=== PATIENT | female | born 1980 | race Caucasian/White ===

== ENCOUNTER 2017-03-06 16:58 | Emergency (ER) | payer OTHER ==
[2017-03-06] MEDS ORDERED: ONDANSETRON 4 MG/2 ML VIAL IVP STA (17:41)
[2017-03-06] MEDS ORDERED: HYDROmorphone 1 MG/ML SYRINGE IVP STA ×2 (17:41→20:16)
--- NOTE | 2017-03-06 17:44 | ED Physician Documentation ---
PD HPI ABD PAIN - Stated complaint Stated Complaint: AB PX - Chief complaint Chief Complaint: Abd Pain - History obtained from History obtained from: Patient - History of Present Illness Timing - onset: Other (Gradual but rapid onset right lower abdominal pain since early this afternoon associated with nausea but no vomiting. No urinary complaints or problems with her bowel movements. She has a history of 3 C- sections a cholecystectomy as well as pelvic floor dysfunction. 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 - Present Medications Home Medications: Ambulatory Orders Medication Instructions Recorded Confirmed Cyclobenzaprine [Flexeril] 10 mg PO DAILY 03/06/17 03/06/17 Oxycodone HCl/Acetaminophen 1 - 2 tab PO Q4H PRN #10 tablet 03/06/17 [Percocet 5-325 mg Tablet] Sertraline HCl [Zoloft] 200 mg PO DAILY 03/06/17 03/06/17 - Allergies Allergies/Adverse Reactions: Allergies Allergy/AdvReac Type Severity Reaction Status Date / Time amoxicillin [Amoxicillin] Allergy Unknown Verified 11/23/15 15:34 ketorolac tromethamine * Allergy Unknown Verified 11/23/15 15:34 [From Toradol] latex Allergy Unknown Verified 11/23/15 15:34 promethazine HCl * AdvReac Hives Verified 11/23/15 15:34 [From Phenergan] - Social History Does the pt smoke?: No Smoking Status: Former smoker Does the pt drink ETOH?: Yes Does the pt have substance abuse?: No - Family History Family history: reports: Non contributory - Immunizations Immunizations are current?: Yes PD ED PE NORMAL - Vitals Vital signs reviewed: Yes - General General: Alert and oriented X 3, Other (uncomfortable) - HEENT HEENT: PERRL, EOMI - Neck Neck: Supple, no meningeal sign, No bony TTP - Cardiac Cardiac: RRR, No murmur - Respiratory Respiratory: No respiratory distress, Clear bilaterally - Abdomen Abdomen: Other (TTP RLQ without G/R) - Back Back: No CVA TTP, No spinal TTP - Derm Derm: Normal color, Warm and dry - Extremities Extremities: No edema, No calf tenderness / cord - Neuro Neuro: Alert and oriented X 3, Normal speech - Psych Psych: Normal mood, Normal affect Results - Vitals Vitals: Vital Signs - 24 hr 03/06/17 03/06/17 03/06/17 17:03 18:14 20:31 Temperature 36.2 C L Heart Rate 88 79 92 Respiratory 20 16 18 Rate Blood Pressure 141/69 H 112/64 104/77 O2 Saturation 94 98 96 03/06/17 21:02 Temperature Heart Rate 92 Respiratory 16 Rate Blood Pressure 114/64 O2 Saturation 97 Oxygen O2 Source Room air - Labs Labs: Laboratory Tests 03/06/17 03/06/17 03/06/17 17:45 18:04 18:04 WBC 6.3 RBC 4.38 Hgb 13.0 Hct 39.5 MCV 90.3 MCH 29.8 MCHC 33.0 RDW 13.6 Plt Count 221 MPV 9.4 Neut # 2.9 Lymph # 2.6 [place] # 0.7 Eos # 0.1 Baso # 0.0 Absolute Nucleated RBC 0.01 Nucleated RBCs 0.1 Sodium 139 Potassium 4.3 Chloride 100 L Carbon Dioxide 31 Anion Gap 8.0 BUN 10 Creatinine 0.7 Estimated GFR (MDRD) 95 Glucose 79 Calcium 9.8 Total Bilirubin 0.4 AST 26 ALT 22 Alkaline Phosphatase 66 Total Protein 7.9 Albumin 4.5 Globulin 3.4 Albumin/Globulin Ratio 1.3 Lipase 31 Urine Color YELLOW Urine Clarity CLEAR Urine pH 5.0 Ur Specific [place] 1.020 Urine Protein NEGATIVE Urine Glucose (UA) NEGATIVE Urine Ketones NEGATIVE Urine Occult Blood TRACE-INTA Urine Nitrite NEGATIVE Urine Bilirubin NEGATIVE Urine Urobilinogen 0.2 (NORMAL) Ur Leukocyte Esterase NEGATIVE Ur Microscopic Review NOT INDICATED Urine Culture Comments NOT INDICATED Urine HCG, Qual NEGATIVE - Rads (name of study) Pelvic sono Radiology: EMP read contemporaneously (Small septated right ovarian cyst, heterogenous endometrium, small complex fluid in the cervix) PD MEDICAL DECISION MAKING - ED course ED course: 36 year-old woman presents with relatively sudden onset and nonmigratory right lower quadrant pain over a few hours and found to have a right ovarian cyst. Lack of any neutrophilia and low normal white count and present alternative diagnosis make appendicitis quite unlikely. Departure - Departure Disposition: 01 Home, Self Care Clinical Impression: Abdominal pain Qualifiers: Abdominal location: right lower quadrant Qualified Code(s): R10.31 - Right lower quadrant pain Ovarian cyst Qualifiers: Laterality: right Qualified Code(s): N83.201 - Unspecified ovarian cyst, right side Condition: Good Record reviewed to determine appropriate education?: Yes Instructions: ED Cyst Ovarian Prescriptions: Oxycodone HCl/Acetaminophen [Percocet 5-325 mg Tablet] 1 - 2 tab PO Q4H PRN #10 tablet PRN Reason: Pain Comments: As discussed you do have evidence of right ovary and cyst on ultrasound. If worse in any way or if you develop an on expected symptom like fever or not improving in the next 12-24 hours please return for reevaluation. Followup with your stores assistant. Do not drink or drive while on narcotic pain medicine. Note that many narcotic pain relievers also contain tylenol/acetaminophen. Please ensure that your total dose of acetaminophen from all sources does not exceed 3 grams (3000mg) per day. You may constipated on this medication, take a stool softener such as "Colace" twice a day while you are on it. Also recommend a rqpk-kht-afgrwsj laxative such as senna or MiraLAX any day that you do not have a bowel movement. If you received narcotic pain medication in the emergency department, do not drive or operate machinery for the next 24 hours.
[2017-03-06] MEDS ORDERED: ONDANSETRON 4 MG/2 ML VIAL ONE (17:55)
[2017-03-06] MEDS ORDERED: HYDROmorphone 1 MG/ML SYRINGE ONE ×2 (17:55→20:22)
[2017-03-06 18:11] LABS: BASOPHILS % (AUTO) 0.4 %; EOSINOPHILS # (AUTO) 0.1 10^3/uL (0.0-0.7); EOSINOPHILS % (AUTO) 1.3 %; HCT - HEMATOCRIT 39.5 % (37.0-47.0); LYMPHOCYTES # (AUTO) 2.6 10^3/uL (1.5-3.5); LYMPHOCYTES % (AUTO) 40.8 %; MEAN CORPUSCULAR HEMOGLOBIN 29.8 pg (27.0-31.0); MEAN CORPUSCULAR VOLUME 90.3 fL (81.0-99.0); MEAN PLATELET VOLUME 9.4 fL (7.9-10.8); MONOCYTES # (AUTO) 0.7 10^3/uL (0.0-1.0); MONOCYTES % (AUTO) 11.3 %; NEUTROPHILS # (AUTO) 2.9 10^3/uL (1.5-6.6); NEUTROPHILS % (AUTO) 46.2 %; NUCLEATED RED BLOOD CELLS AUTO 0.1 /100WBC; RED BLOOD COUNT 4.38 10^6/uL (4.20-5.40); RED CELL DISTRIBUTION WIDTH 13.6 % (12.0-15.0); UNCORRECTED WHITE BLOOD COUNT 6.3 x10^3/uL; WHITE BLOOD COUNT 6.3 x10^3/uL (4.8-10.8)
[2017-03-06 18:20] LABS: BILIRUBIN,URINE NEGATIVE (NEGATIVE)
[2017-03-06 18:24] LABS: UA CHARGE (STRIP ONLY) YES; UR CULTURE IF IND NOT INDICATED
[2017-03-06 18:36] LABS: ALBUMIN/GLOBULIN RATIO 1.3 (1.0-2.2); BILIRUBIN,TOTAL 0.4 mg/dL (0.2-1.0); CALCIUM 9.8 mg/dL (8.5-10.3); CREATININE 0.7 mg/dL (0.4-1.0); POTASSIUM 4.3 mmol/L (3.5-5.0); TOTAL PROTEIN 7.9 g/dL (6.7-8.2)
[2017-03-06 18:55] LABS: HCG UR QUAL NEGATIVE
--- NOTE | 2017-03-06 20:37 | Ultrasound Preliminary Report ---
Exam: US TRANSVAGINAL IMPRESSION: 1. Small moderate complex fluid in the cervix. 2. Heterogeneous endometrium with tiny fluid collection at level of scar. 3. Small septated right ovarian cyst. [facility] SITE ID: [id number]
--- NOTE | 2017-03-06 20:37 | Ultrasound Preliminary Report ---
Exam: US Pelvic Complete - Non OB IMPRESSION: 1. Small moderate complex fluid in the cervix. 2. Heterogeneous endometrium with tiny fluid collection at level of scar. 3. Small septated right ovarian cyst. [facility] SITE ID: [id number]
--- NOTE | 2017-03-06 20:39 | Ultrasound Report ---
EXAM: PELVIC ULTRASOUND EXAM DATE: 03/06/2017 07:58 PM. CLINICAL HISTORY: RLQ pain. COMPARISON: 11 feb 2008. TECHNIQUE: Realtime transabdominal pelvic scan performed to identify the uterus and adnexa and as an overview of other pelvic structures, followed by transvaginal scan to provide greater detail of the u terus and adnexa, with static image documentation. FINDINGS: Uterus: 9.4 x 4.0 x 6.7 cm, volume 131.5 cc. Anteverted position. Normal overall size and echotexture . Masses: None. Endometrium: 12 mm. Heterogeneous with small amount of vascularity. Small fluid collection at the lev el of the scar measuring about 0.5 x 0.3 x 0.6 cm. Cervix: Small amount of fluid and echogenic material in endocervical canal measuring about 2 mm in di ameter. Right Ovary: 3.5 x 3.0 x 2.1 cm, volume 12 cc. Normal echotexture and blood flow. Septated cyst measu ring about 1.8 x 1.4 x 2.7 cm. Left Ovary: 3.4 x 2.2 x 1.9 cm, volume 7 cc. Normal echotexture and blood flow. Free Fluid: None. Other: None. IMPRESSION: 1. Small moderate complex fluid in the cervix. 2. Heterogeneous endometrium with tiny fluid collection at level of scar. 3. Small septated right ovarian cyst. [facility] Referring Provider Line: [phone] SITE ID: [id number]
[2017-03-06 21:05] VITALS: BP 114/64
[2017-03-06] MEDS ORDERED: oxyCODONE/ACET 5/325 Prepack 4 PO STA (21:08)
[2017-03-06] MEDS ORDERED: oxyCODONE/ACET 5/325 Prepack 4 PO ONE (21:10)
== END 2017-03-06 21:17 | disposition home or self-care (01) ==
LOC: ED 16:58
DX: R10.31 Right lower quadrant pain (principal); N83.201 Unspecified ovarian cyst, right side; Z87.891 Personal history of nicotine dependence
CPT/HCPCS: 36415; 76830; 76856; 80053; 81003; 81025; 83690; 85025; 96374; 96375; 96376; 99284; J1170; 81001; 87086

== ENCOUNTER 2017-06-29 11:46 | Emergency (ER) | payer OTHER ==
[2017-06-29] MEDS ORDERED: ONDANSETRON 4 MG/2 ML VIAL IVP STA (12:44)
[2017-06-29] MEDS ORDERED: SODIUM CHLORIDE 0.9% 1,000 ML IV ONE (12:44)
[2017-06-29] MEDS ORDERED: HYDROmorphone 1 MG/ML CARPUJECT IVP STA ×2 (12:44→14:41)
--- NOTE | 2017-06-29 12:47 | ED Physician Documentation ---
PD HPI ABD PAIN - Stated complaint Stated Complaint: ABD PX - Chief complaint Chief Complaint: Abd Pain - History obtained from History obtained from: Patient, Friend - History of Present Illness Timing - onset: How many days ago (2) Timing - duration: Days (2) Timing - details: Gradual onset Pain level max: 9 Pain level now: 9 Quality: Cramping, Aching, Sharp, Pain Location: RLQ, Suprapubic, LLQ Radiation: Other (non-radiating) Improved by: Meds (percocet helped at home) Worsened by: Moving, Palpation Associated symptoms: Nausea. No: Fever, Vomiting, Hematemesis, Diarrhea, Constipation, Melena, Hematochezia, Dysuria, Hematuria, Vaginal bleeding, Vaginal dc Similar symptoms before: Diagnosis (pelvic floor dysfunction, vulvodynia, ovarian cyst) Recently seen: Clinic (sent from [facility] today for eval.) - Additional information Additional information: Patient is a 36-year-old female who presents to the emergency department with 2 days of worsening lower abdominal/pelvic pain. Has a history of similar. States that this started after doing physical therapy for her pelvic floor dysfunction. Denies any fevers. States that normally the pain feels like it is wrapping around her back, but this pain is more localized centrally in her abdomen, suprapubic area. She is currently seeing a pelvic floor nurse in [place] and tried her vaginal muscle relaxant medication, but this did not help much. The Percocet helped mildly. Has Percocet for cluster headaches. Review of Systems Constitutional: denies: Fever, Chills Eyes: denies: Decreased vision Ears: denies: Ear pain Throat: denies: Sore throat Cardiac: denies: Chest pain / pressure Respiratory: denies: Cough GI: reports: Nausea. 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 - Present Medications Home Medications: Ambulatory Orders Medication Instructions Recorded Confirmed Cyclobenzaprine [Flexeril] 10 mg PO DAILY 03/06/17 06/29/17 Oxycodone HCl/Acetaminophen 1 - 2 tab PO Q4H PRN #10 tablet 03/06/17 06/29/17 [Percocet 5-325 mg Tablet] Sertraline HCl [Zoloft] 200 mg PO DAILY 03/06/17 06/29/17 Ondansetron Odt [Zofran] 4 mg TL Q6H PRN #10 tablet 06/29/17 Oxycodone HCl/Acetaminophen 1 - 2 each PO Q6H PRN #14 tablet 06/29/17 [Percocet 5-325 mg Tablet] - Allergies Allergies/Adverse Reactions: Allergies Allergy/AdvReac Type Severity Reaction Status Date / Time amoxicillin [Amoxicillin] Allergy Unknown Verified 11/23/15 15:34 ketorolac tromethamine * Allergy Unknown Verified 11/23/15 15:34 [From Toradol] latex Allergy Unknown Verified 11/23/15 15:34 promethazine HCl * AdvReac Hives Verified 11/23/15 15:34 [From Phenergan] - Social History Does the pt smoke?: No Smoking Status: Never smoker Does the pt drink ETOH?: Yes Does the pt have substance abuse?: No - Immunizations Immunizations are current?: Yes PD ED PE NORMAL - Vitals Vital signs reviewed: Yes - General General: Alert and oriented X 3, No acute distress, Well developed/nourished - HEENT HEENT: PERRL, Moist mucous membranes - Neck Neck: Supple, no meningeal sign - Cardiac Cardiac: RRR, Strong equal pulses - Respiratory Respiratory: No respiratory distress, Clear bilaterally - Abdomen Abdomen: Normal bowel sounds, Soft, Non distended, Other (Tender to palpation lower abdominal, suprapubic and right lower quadrant. Positive guarding. Positive rebound.) - Back Back: No CVA TTP, No spinal TTP - Derm Derm: Warm and dry - Extremities Extremities: No edema - Neuro Neuro: Alert and oriented X 3 - Psych Psych: Normal mood, Normal affect Results - Vitals Vitals: Vital Signs - 24 hr 06/29/17 06/29/17 12:03 14:09 Temperature 36.7 C Heart Rate 87 68 Respiratory 16 15 Rate Blood Pressure 119/77 107/75 O2 Saturation 97 98 Oxygen O2 Source Room air - Labs Labs: Laboratory Tests 1006/29/17 06/29/17 11:55 12:32 12:32 WBC 5.9 RBC 4.21 Hgb 12.8 Hct 38.0 MCV 90.2 MCH 30.4 MCHC 33.7 RDW 13.8 Plt Count 242 MPV 9.9 Neut # 3.5 Lymph # 1.9 [place] # 0.4 Eos # 0.1 Baso # 0.1 Absolute Nucleated RBC 0.00 Nucleated RBC % 0.0 Sodium 136 Potassium 3.7 Chloride 101 Carbon Dioxide 26 Anion Gap 9.0 BUN 9 Creatinine 0.7 Estimated GFR (MDRD) 95 Glucose 125 H Calcium 9.4 Total Bilirubin 0.5 AST 25 ALT 18 Alkaline Phosphatase 45 Total Protein 7.7 Albumin 4.5 Globulin 3.2 Albumin/Globulin Ratio 1.4 Lipase 36 Urine Color YELLOW Urine Clarity CLEAR Urine pH 5.5 Ur Specific [place] >=1.030 H Urine Protein NEGATIVE Urine Glucose (UA) NEGATIVE Urine Ketones NEGATIVE Urine Occult Blood TRACE-INTA Urine Nitrite NEGATIVE Urine Bilirubin NEGATIVE Urine Urobilinogen 0.2 (NORMAL) Ur Leukocyte Esterase NEGATIVE Ur Microscopic Review NOT INDICATED Urine Culture Comments NOT INDICATED Urine HCG, Qual NEGATIVE - Rads (name of study) CT abdomen and pelvis Radiology: Prelim report reviewed, EMP read contemporaneously, See rad report ( 2 cm left ovarian cyst. Focal thinning of the lower anterior uterine wall most likely due to prior . Correlate clinically to determine etiology and significance of such. No evidence of perforation. Normal appendix. No radiographic explanation for this young lady's presenting symptoms.) PD MEDICAL DECISION MAKING - ED course Complexity details: reviewed old records, reviewed results, re-evaluated patient , considered differential, d/w patient ED course: Patient is a 36-year-old female who presents to the emergency department with lower abdominal/pelvic pain. Declines a pelvic exam. 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 Started after a physical therapy session. No acute findings on CT scan other than an ovarian cyst. She states that she is unable to have any more children. Her pain feels similar to prior ovarian cysts as well as to her pelvic floor dysfunction. Declines a repeat ultrasound at this time. She is well-appearing, nontoxic. Afebrile. Will have her follow-up with her PCP for further evaluation and care. Does not appear consistent with ovarian torsion at this time. Patient counseled regarding signs and symptoms for which I believe and urgent re-evaluation would be necessary. Patient with good understanding of and agreement to plan and is comfortable going home at this time This document was made in part using voice recognition software. While efforts are made to proofread this document, sound alike and grammatical errors may occur. Departure - Departure Disposition: 01 Home, Self Care Clinical Impression: Ovarian cyst Qualifiers: Laterality: left Qualified Code(s): N83.202 - Unspecified ovarian cyst, left side Abdominal pain Qualifiers: Abdominal location: unspecified location Qualified Code(s): R10.9 - Unspecified abdominal pain Condition: Good Instructions: ED Abdominal Pain Unkn Cause Follow-Up: CLEOPATRA ROBISON MD [Primary Care Provider] - Within 1 week Prescriptions: Ondansetron Odt [Zofran] 4 mg TL Q6H PRN #10 tablet PRN Reason: Nausea / Vomiting Oxycodone HCl/Acetaminophen [Percocet 5-325 mg Tablet] 1 - 2 each PO Q6H PRN # 14 tablet PRN Reason: pain Comments: You do have a 2 cm left ovarian cyst on your CT scan. Return if you worsen. Do not drink alcohol or drive while on narcotic pain medicine. Note that many narcotic pain relievers also contain tylenol/acetaminophen. Please ensure that your total dose of acetaminophen from all sources does not exceed 3 grams (3000mg) per day. You may constipated on this medication, take a stool softener such as "Colace" twice a day while you are on it. Also recommend a ohit-jkq-vhwcanm laxative such as senna or MiraLAX any day that you do not have a bowel movement. If you received narcotic pain medication in the emergency department, do not drive or operate machinery for the next 24 hours. Discharge Date/Time: 06/29/17 14:58
[2017-06-29 12:55] LABS: BILIRUBIN,URINE NEGATIVE (NEGATIVE); PH,URINE 5.5 PH (5.0-7.5)
[2017-06-29] MEDS ORDERED: IOPAMIDOL-300 100 ML VIAL ONE (12:56)
[2017-06-29] MEDS ORDERED: ONDANSETRON 4 MG/2 ML VIAL ONE (12:57)
[2017-06-29] MEDS ORDERED: HYDROmorphone 1 MG/ML SYRINGE ONE ×2 (12:57→14:52)
[2017-06-29 12:58] LABS: HCG UR QUAL NEGATIVE; UA CHARGE (STRIP ONLY) YES; UR CULTURE IF IND NOT INDICATED
[2017-06-29 13:05] LABS: BASOPHILS # (AUTO) 0.1 10^3/uL (0.0-0.1); EOSINOPHILS # (AUTO) 0.1 10^3/uL (0.0-0.7); HGB - HEMOGLOBIN 12.8 g/dL (12.0-16.0); LYMPHOCYTES # (AUTO) 1.9 10^3/uL (1.5-3.5); LYMPHOCYTES % (AUTO) 32.3 %; MEAN CORPUSCULAR HEMOGLOBIN 30.4 pg (27.0-31.0); MEAN CORPUSCULAR HGB CONC 33.7 g/dL (32.0-36.0); MEAN CORPUSCULAR VOLUME 90.2 fL (81.0-99.0); MEAN PLATELET VOLUME 9.9 fL (7.9-10.8); MONOCYTES # (AUTO) 0.4 10^3/uL (0.0-1.0); MONOCYTES % (AUTO) 6.9 %; NEUTROPHILS # (AUTO) 3.5 10^3/uL (1.5-6.6); NEUTROPHILS % (AUTO) 58.8 %; RED BLOOD COUNT 4.21 10^6/uL (4.20-5.40); RED CELL DISTRIBUTION WIDTH 13.8 % (12.0-15.0); UNCORRECTED WHITE BLOOD COUNT 5.9 x10^3/uL; WHITE BLOOD COUNT 5.9 x10^3/uL (4.8-10.8)
[2017-06-29 13:08] LABS: ALBUMIN/GLOBULIN RATIO 1.4 (1.0-2.2); BILIRUBIN,TOTAL 0.5 mg/dL (0.2-1.0); CALCIUM 9.4 mg/dL (8.5-10.3); CREATININE 0.7 mg/dL (0.4-1.0); POTASSIUM 3.7 mmol/L (3.5-5.0); TOTAL PROTEIN 7.7 g/dL (6.7-8.2)
[2017-06-29] MEDS ORDERED: IOPAMIDOL-300 100 ML VIAL IVP ONE (13:59)
[2017-06-29 14:09] VITALS: BP 107/75
--- NOTE | 2017-06-29 14:30 | CT Preliminary Report ---
Exam: CT Abdomen/Pelvis W/ IMPRESSION: 1. 2 cm left ovarian cyst. 2. Focal thinning of the lower anterior uterine wall most likely due to prior . Correlate cl inically to determine etiology and significance of such. 3. Normal appendix. 4. No radiographic explanation for this young lady's presenting symptoms. [facility] SITE ID: [id number]
--- NOTE | 2017-06-29 14:37 | CT Report ---
EXAM: CT ABDOMEN AND PELVIS EXAM DATE: 06/29/2017 01:56 PM. CLINICAL HISTORY: Lower abdominal pain and nausea for the last 2 days. Remote cholecystectomy. COMPARISONS: Pelvic ultrasound 03/06/2017. No prior CT study.. TECHNIQUE: Routine helical CT imaging was performed through the abdomen and pelvis. IV contrast: 100 mL Isovue-300. Enteric contrast: No. Reconstructions: Coronal and sagittal. In accordance with CT protocol optimization, one or more of the following dose reduction techniques w ere utilized for this exam: automated exposure control, adjustment of mA and/or KV based on patient s ize, or use of iterative reconstructive technique. FINDINGS: Lung Bases: Unremarkable. Liver: Normal. No masses. Gallbladder/Bile Ducts: Cholecystectomy. Spleen: Normal. Pancreas: Normal. Adrenal Glands: Normal. Kidneys: Normal. No masses or hydronephrosis. Peritoneal Cavity/Bowel: Normal. No free fluid, free air or adenopathy. No masses or acute inflammato ry process. The appendix is well visualized and normal. Pelvic Organs: Normal. The bladder and visualized pelvic organs are within normal limits. Vasculature: 2 cm left ovarian cyst. Both ovaries normal caliber. Uterus has a normal caliber. Asymmetric anterior enlargement of the lower endometrial echo complex wi th 5 mm thinning of the uterine wall lower uterine segment, sagittal image 37. No free fluid. No ston es in the small caliber urinary bladder. Bones: No significant abnormality. Other: None. IMPRESSION: 1. 2 cm left ovarian cyst. 2. Focal thinning of the lower anterior uterine wall most likely due to prior . Correlate cl inically to determine etiology and significance of such. No evidence of perforation. 3. Normal appendix. 4. No radiographic explanation for this young lady's presenting symptoms. [facility] Referring Provider Line: [phone] SITE ID: [id number]
[2017-06-29] MEDS ORDERED: SODIUM CHLORIDE FLUSH 0.9% 10 ML SYRINGE IVP ONE (14:53)
== END 2017-06-29 14:58 | disposition home or self-care (01) ==
LOC: ED 11:46
DX: N83.202 Unspecified ovarian cyst, left side (principal); R10.9 Unspecified abdominal pain
CPT/HCPCS: 36415; 74177; 80053; 81003; 81025; 83690; 85025; 96361; 96374; 96375; 96376; 99283; 99284; J1170; Q9967; 81001; 87086

== ENCOUNTER 2017-08-25 11:44 | Emergency (ER) | payer OTHER ==
[2017-08-25 12:21] LABS: BASOPHILS # (AUTO) 0.1 10^3/uL (0.0-0.1); EOSINOPHILS # (AUTO) 0.1 10^3/uL (0.0-0.7); EOSINOPHILS % (AUTO) 0.8 %; HCT - HEMATOCRIT 39.6 % (37.0-47.0); HGB - HEMOGLOBIN 13.4 g/dL (12.0-16.0); LYMPHOCYTES # (AUTO) 2.1 10^3/uL (1.5-3.5); LYMPHOCYTES % (AUTO) 33.7 %; MEAN CORPUSCULAR HEMOGLOBIN 30.3 pg (27.0-31.0); MEAN CORPUSCULAR HGB CONC 33.7 g/dL (32.0-36.0); MEAN CORPUSCULAR VOLUME 89.9 fL (81.0-99.0); MEAN PLATELET VOLUME 9.4 fL (7.9-10.8); MONOCYTES # (AUTO) 0.6 10^3/uL (0.0-1.0); MONOCYTES % (AUTO) 9.3 %; NEUTROPHILS # (AUTO) 3.5 10^3/uL (1.5-6.6); NEUTROPHILS % (AUTO) 55.2 %; RED CELL DISTRIBUTION WIDTH 13.6 % (12.0-15.0); UNCORRECTED WHITE BLOOD COUNT 6.3 x10^3/uL; WHITE BLOOD COUNT 6.3 x10^3/uL (4.8-10.8)
[2017-08-25 12:33] LABS: ALBUMIN/GLOBULIN RATIO 1.3 (1.0-2.2); BILIRUBIN,TOTAL 0.5 mg/dL (0.2-1.0); CALCIUM 9.7 mg/dL (8.5-10.3); CREATININE 0.5 mg/dL (0.4-1.0); POTASSIUM 4.2 mmol/L (3.5-5.0); TOTAL PROTEIN 7.9 g/dL (6.7-8.2)
[2017-08-25] MEDS ORDERED: SODIUM CHLORIDE 0.9% 1,000 ML IV ONE (12:41)
[2017-08-25] MEDS ORDERED: ONDANSETRON 4 MG/2 ML VIAL IVP STA (12:41)
[2017-08-25] MEDS ORDERED: HYDROmorphone 1 MG/ML SYRINGE IVP STA ×2 (12:41→14:12)
--- NOTE | 2017-08-25 12:44 | ED Physician Documentation ---
PD HPI ABD PAIN - Stated complaint Stated Complaint: RLQ PAIN - Chief complaint Chief Complaint: Abd Pain - History obtained from History obtained from: Patient - History of Present Illness Timing - onset: Other (36-year-old woman with recurrent ovarian cyst presents with 3 days of a rapid onset right pelvic pain associated with nausea. No response to Motrin. No fevers or chills. Pain is similar to previous ovarian cyst, no vaginal bleeding. Tried Motrin, marijuana, butalbital and Flexeril without any help.) Review of Systems Constitutional: reports: Reviewed and negative Cardiac: reports: Reviewed and negative Respiratory: reports: Reviewed and negative GI: reports: Abdominal Pain. 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 - Present Medications Home Medications: Ambulatory Orders Medication Instructions Recorded Confirmed Cyclobenzaprine [Flexeril] 10 mg PO DAILY 03/06/17 08/25/17 Oxycodone HCl/Acetaminophen 1 - 2 tab PO Q4H PRN #10 tablet 03/06/17 08/25/17 [Percocet 5-325 mg Tablet] Sertraline HCl [Zoloft] 200 mg PO DAILY 03/06/17 08/25/17 Ondansetron Odt [Zofran] 4 mg TL Q6H PRN #10 tablet 06/29/17 08/25/17 Oxycodone HCl/Acetaminophen 1 - 2 each PO Q6H PRN #14 tablet 06/29/17 08/25/17 [Percocet 5-325 mg Tablet] Ondansetron HCl [Zofran] 4 mg PO Q6H PRN #10 tablet 08/25/17 Oxycodone HCl/Acetaminophen 1 - 2 tab PO Q4H PRN #15 tablet 08/25/17 [Percocet 5-325 mg Tablet] - Allergies Allergies/Adverse Reactions: Allergies Allergy/AdvReac Type Severity Reaction Status Date / Time amoxicillin [Amoxicillin] Allergy Unknown Verified 08/25/17 11:57 ketorolac tromethamine * Allergy Unknown Verified 08/25/17 11:57 [From Toradol] latex Allergy Unknown Verified 08/25/17 11:57 promethazine HCl * AdvReac Hives Verified 08/25/17 11:57 [From Phenergan] - Social History Does the pt smoke?: No Smoking Status: Never smoker Does the pt drink ETOH?: Yes Does the pt have substance abuse?: No - Immunizations Immunizations are current?: Yes - POLST Patient has POLST: No PD ED PE NORMAL - Vitals Vital signs reviewed: Yes - General General: Alert and oriented X 3, Other (Uncomfortable) - Cardiac Cardiac: RRR, No murmur - Respiratory Respiratory: No respiratory distress, Clear bilaterally - Abdomen Abdomen: Other (Tender in the right pelvis without surgical signs) - Neuro Neuro: Alert and oriented X 3, Normal speech - Psych Psych: Normal mood, Normal affect Results - Vitals Vitals: Vital Signs - 24 hr 08/25/17 08/25/17 08/25/17 11:55 13:14 14:47 Temperature 36.8 C 36.8 C Heart Rate 83 86 90 Respiratory 20 15 15 Rate Blood Pressure 144/94 H 100/79 112/63 O2 Saturation 95 97 97 Oxygen O2 Source Room air - Labs Labs: Laboratory Tests 08/25/17 08/25/17 12:12 12:12 WBC 6.3 RBC 4.40 Hgb 13.4 Hct 39.6 MCV 89.9 MCH 30.3 MCHC 33.7 RDW 13.6 Plt Count 244 MPV 9.4 Neut # 3.5 Lymph # 2.1 [place] # 0.6 Eos # 0.1 Baso # 0.1 Absolute Nucleated RBC 0.00 Nucleated RBC % 0.0 Sodium 137 Potassium 4.2 Chloride 101 Carbon Dioxide 26 Anion Gap 10.0 BUN 13 Creatinine 0.5 Estimated GFR (MDRD) 140 Glucose 87 Calcium 9.7 Total Bilirubin 0.5 AST 24 ALT 16 Alkaline Phosphatase 46 Total Protein 7.9 Albumin 4.4 Globulin 3.5 Albumin/Globulin Ratio 1.3 Lipase 39 - Rads (name of study) Pelvic sono Radiology: Prelim report reviewed (Right ovarian cyst, small amount of fluid in her scar, trace free fluid, bicornuate uterus possibly.) PD MEDICAL DECISION MAKING - ED course ED course: 36-year-old woman with recurrent ovarian cyst presents with right lower quadrant pain more consistent with ovarian cyst and appendicitis, this is also corroborated by low normal white cell count without left shift and ultrasound showing ovarian cyst. Departure - Departure Disposition: 01 Home, Self Care Clinical Impression: Ovarian cyst Qualifiers: Laterality: right Qualified Code(s): N83.201 - Unspecified ovarian cyst, right side Condition: Good Record reviewed to determine appropriate education?: Yes Instructions: ED Pelvic Pain [facility] Prescriptions: Ondansetron HCl [Zofran] 4 mg PO Q6H PRN #10 tablet PRN Reason: Nausea / Vomiting Oxycodone HCl/Acetaminophen [Percocet 5-325 mg Tablet] 1 - 2 tab PO Q4H PRN #15 tablet PRN Reason: Pain Comments: Take the copy of your ultrasound report and follow-up with your assistant cross country coach for further evaluation and treatment. Return if worse. Do not drink or drive while taking narcotic pain medication. Note that many narcotic pain relievers also contain Tylenol/acetaminophen. Please ensure that your total dose of acetaminophen from all sources does not exceed 3 g (3000 mg) per day. You may get constipated while on this medication. Take a stool softener such as Colace twice a day while you are on it. Also add an rzil-xaq-dpntgzm laxative such as senna or MiraLAX on any day that you do not have a bowel movement. If you received a narcotic pain medication or sedative while in the emergency department, do not drive for the next 24 hours.
[2017-08-25] MEDS ORDERED: ONDANSETRON 4 MG/2 ML VIAL ONE (13:06)
[2017-08-25] MEDS ORDERED: HYDROmorphone 1 MG/ML SYRINGE ONE ×2 (13:06→14:22)
[2017-08-25 14:48] VITALS: BP 112/63
--- NOTE | 2017-08-25 14:52 | Ultrasound Preliminary Report ---
Exam: US PELVIC COMPLETE - NON OB IMPRESSION: 1. Possible bicornuate uterus. 2. Small fluid collection at the level of the scar measuring up to 1.5 cm. 3. Small right ovarian cyst. 4. Trace free fluid. [facility] SITE ID: [id number]
--- NOTE | 2017-08-25 14:54 | Ultrasound Report ---
EXAM: PELVIC ULTRASOUND EXAM DATE: 08/25/2017 02:18 PM. CLINICAL HISTORY: Right pelvic pain. History of ovarian cyst. History of 3 prior C-sections. COMPARISON: Pelvic ultrasound dated 03/06/2017. TECHNIQUE: Realtime transabdominal pelvic scan performed to identify the uterus and adnexa and as an overview of other pelvic structures, followed by transvaginal scan to provide greater detail of the u terus and adnexa, with static image documentation. FINDINGS: Uterus: 11.1 x 4.5 x 7.2 cm, volume 188 cc. Normal overall size and echotexture. May be bicornuate. Masses: None. Small fluid collection at the level of the scar measuring 1.5 x 1.4 x 1.3 cm. Endometrium: 17 mm. Normal. Right Ovary: 3.2 x 2.2 x 2.1 cm, volume 7.7 cc. Normal echotexture and blood flow. Small cyst measure s 1.3 x 0.9 x 1.1 cm. Left Ovary: 3.3 x 2.4 x 2.2 cm, volume 9.1 cc. Normal echotexture and blood flow. Free Fluid: Trace free fluid. Other: None. IMPRESSION: 1. Possible bicornuate uterus. 2. Small fluid collection at the level of the scar measuring up to 1.5 cm. 3. Small right ovarian cyst. 4. Trace free fluid. [facility] Referring Provider Line: [phone] SITE ID: [id number]
[2017-08-25 15:15] LABS: BILIRUBIN,URINE NEGATIVE (NEGATIVE)
[2017-08-25 15:18] LABS: HCG UR QUAL NEGATIVE; UA CHARGE (STRIP ONLY) YES; UR CULTURE IF IND NOT INDICATED
== END 2017-08-25 15:15 | disposition home or self-care (01) ==
LOC: ED 11:44
DX: N83.201 Unspecified ovarian cyst, right side (principal)
CPT/HCPCS: 36415; 76830; 76856; 80053; 81003; 81025; 83690; 85025; 96361; 96374; 96375; 96376; 99284; J1170; 81001; 87086

== ENCOUNTER 2017-11-21 13:38 | Emergency (ER) | payer OTHER ==
[2017-11-21 14:42] LABS: BILIRUBIN,URINE NEGATIVE (NEGATIVE); GLUCOSE, URINE (UA) NEGATIVE (NEGATIVE); KETONES,URINE (UA) NEGATIVE (NEGATIVE); LEUKOCYTE ESTERASE, URINE NEGATIVE (NEGATIVE); NITRITE,URINE NEGATIVE (NEGATIVE); OCCULT BLOOD,URINE NEGATIVE (NEGATIVE); PROTEIN,URINE NEGATIVE (NEGATIVE); UROBILINOGEN,URINE 0.2 (NORMAL) E.U./dL (NORMAL)
[2017-11-21 14:45] LABS: CLARITY,URINE CLEAR (CLEAR); HCG UR QUAL NEGATIVE
[2017-11-21 15:52] LABS: BASOPHILS % (AUTO) 0.4 %; EOSINOPHILS % (AUTO) 0.4 %; HGB - HEMOGLOBIN 13.3 g/dL (12.0-16.0); LYMPHOCYTES # (AUTO) 2.1 10^3/uL (1.5-3.5); LYMPHOCYTES % (AUTO) 30.1 %; MEAN CORPUSCULAR HEMOGLOBIN 30.6 pg (27.0-31.0); MEAN CORPUSCULAR HGB CONC 33.7 g/dL (32.0-36.0); MEAN CORPUSCULAR VOLUME 90.6 fL (81.0-99.0); MEAN PLATELET VOLUME 9.4 fL (7.9-10.8); MONOCYTES # (AUTO) 0.6 10^3/uL (0.0-1.0); MONOCYTES % (AUTO) 8.1 %; NEUTROPHILS # (AUTO) 4.3 10^3/uL (1.5-6.6); PLT - PLATELET COUNT 229 10^3/uL (130-450); RED BLOOD COUNT 4.36 10^6/uL (4.20-5.40); RED CELL DISTRIBUTION WIDTH 13.2 % (12.0-15.0); WHITE BLOOD COUNT 7.1 x10^3/uL (4.8-10.8)
[2017-11-21 15:58] LABS: ALBUMIN 4.5 g/dL (3.2-5.5); ALBUMIN/GLOBULIN RATIO 1.3 (1.0-2.2); BILIRUBIN,TOTAL 0.5 mg/dL (0.2-1.0); CALCIUM 9.5 mg/dL (8.5-10.3); CREATININE 0.7 mg/dL (0.4-1.0); TOTAL PROTEIN 8.1 g/dL (6.7-8.2)
[2017-11-21] MEDS ORDERED: HYDROmorphone 1 MG/ML SYRINGE IM STA (16:26)
--- NOTE | 2017-11-21 16:28 | ED Physician Documentation ---
PD HPI ABD PAIN - Stated complaint Stated Complaint: ABD PX - Chief complaint Chief Complaint: Abd Pain - History obtained from History obtained from: Patient - History of Present Illness Timing - onset: Other (3 days Suprapubic and LLQ similar to ov cyst which are recurrent and plans to have hyst at [facility] in December. Pain is svere, sharp and non-rad.) Review of Systems Constitutional: denies: Fever, Chills GI: reports: Abdominal Pain. denies: Nausea, Vomiting, Constipation, Diarrhea : reports: Frequency. denies: Dysuria PD PAST MEDICAL HISTORY - Past Medical History Neuro: Headache/migraine Endocrine/Autoimmune: None GI: None : None Psych: None Musculoskeletal: None Derm: None - Past Surgical History Past Surgical History: Yes General: Cholecystectomy /[employer]: section - Present Medications Home Medications: Ambulatory Orders Medication Instructions Recorded Confirmed Cyclobenzaprine [Flexeril] 10 mg PO DAILY 03/06/17 08/25/17 Oxycodone HCl/Acetaminophen 1 - 2 tab PO Q4H PRN #10 tablet 03/06/17 08/25/17 [Percocet 5-325 mg Tablet] Sertraline HCl [Zoloft] 200 mg PO DAILY 03/06/17 08/25/17 Ondansetron Odt [Zofran] 4 mg TL Q6H PRN #10 tablet 06/29/17 08/25/17 Oxycodone HCl/Acetaminophen 1 - 2 each PO Q6H PRN #14 tablet 06/29/17 08/25/17 [Percocet 5-325 mg Tablet] Ondansetron HCl [Zofran] 4 mg PO Q6H PRN #10 tablet 08/25/17 Oxycodone HCl/Acetaminophen 1 - 2 tab PO Q4H PRN #15 tablet 08/25/17 [Percocet 5-325 mg Tablet] Ondansetron HCl [Zofran] 4 mg PO Q6H PRN #10 tablet 11/21/17 Oxycodone HCl/Acetaminophen 1 - 2 tab PO Q4H PRN #15 tablet 11/21/17 [Percocet 5-325 mg Tablet] - Allergies Allergies/Adverse Reactions: Allergies Allergy/AdvReac Type Severity Reaction Status Date / Time amoxicillin [Amoxicillin] Allergy Unknown Verified 11/21/17 13:59 ketorolac tromethamine * Allergy Unknown Verified 11/21/17 13:59 [From Toradol] latex Allergy Unknown Verified 11/21/17 13:59 promethazine HCl * AdvReac Hives Verified 11/21/17 13:59 [From Phenergan] - Social History Does the pt smoke?: No Smoking Status: Never smoker Does the pt drink ETOH?: Yes Does the pt have substance abuse?: No - Immunizations Immunizations are current?: Yes - POLST Patient has POLST: No PD ED PE NORMAL - Vitals Vital signs reviewed: Yes - General General: Alert and oriented X 3, Other (appears in pain) - Abdomen Abdomen: Normal bowel sounds, Soft, Other (TTP LLQ, no surgical signs.) - Back Back: No CVA TTP, No spinal TTP - Extremities Extremities: No edema, No calf tenderness / cord - Neuro Neuro: Alert and oriented X 3, Normal speech - Psych Psych: Normal mood, Normal affect Results - Vitals Vitals: Vital Signs - 24 hr 11/21/17 11/21/17 13:56 16:55 Temperature 37.1 C 36.7 C Heart Rate 112 H 89 Respiratory 18 16 Rate Blood Pressure 114/79 118/79 O2 Saturation 98 97 Oxygen O2 Source Room air - Labs Labs: Laboratory Tests 11/21/17 11/21/17 11/21/17 14:01 15:40 15:40 WBC 7.1 RBC 4.36 Hgb 13.3 Hct 39.5 MCV 90.6 MCH 30.6 MCHC 33.7 RDW 13.2 Plt Count 229 MPV 9.4 Neut # 4.3 Lymph # 2.1 [place] # 0.6 Eos # 0.0 Baso # 0.0 Absolute Nucleated RBC 0.00 Nucleated RBC % 0.0 Sodium 138 Potassium 3.9 Chloride 103 Carbon Dioxide 26 Anion Gap 9.0 BUN 11 Creatinine 0.7 Estimated GFR (MDRD) 94 Glucose 87 Calcium 9.5 Total Bilirubin 0.5 AST 24 ALT 22 Alkaline Phosphatase 42 Total Protein 8.1 Albumin 4.5 Globulin 3.6 Albumin/Globulin Ratio 1.3 Lipase 22 Urine Color LIGHT YELLOW Urine Clarity CLEAR Urine pH 7.0 Ur Specific [place] 1.010 Urine Protein NEGATIVE Urine Glucose (UA) NEGATIVE Urine Ketones NEGATIVE Urine Occult Blood NEGATIVE Urine Nitrite NEGATIVE Urine Bilirubin NEGATIVE Urine Urobilinogen 0.2 (NORMAL) Ur Leukocyte Esterase NEGATIVE Ur Microscopic Review NOT INDICATED Urine Culture Comments NOT INDICATED Urine HCG, Qual NEGATIVE PD MEDICAL DECISION MAKING - ED course ED course: 37-year-old woman presents with left lower quadrant pain, likely ovarian cyst given her history. She is comfortable after the administration of IM Dilaudid. Given normal labs I do not see the necessity for repeat imaging tonight. Departure - Departure Disposition: 01 Home, Self Care Clinical Impression: Ovarian cyst Qualifiers: Laterality: left Qualified Code(s): N83.202 - Unspecified ovarian cyst, left side Condition: Good Record reviewed to determine appropriate education?: Yes Instructions: ED Pelvic Pain [facility] Prescriptions: Ondansetron HCl [Zofran] 4 mg PO Q6H PRN #10 tablet PRN Reason: Nausea / Vomiting Oxycodone HCl/Acetaminophen [Percocet 5-325 mg Tablet] 1 - 2 tab PO Q4H PRN #15 tablet PRN Reason: Pain Comments: Call your doctor to arrange a follow-up appointment, make the next available appointment. In the interim, return anytime if worse or if new symptoms develop. Do not drink or drive while taking narcotic pain medication. Note that many narcotic pain relievers also contain Tylenol/acetaminophen. Please ensure that your total dose of acetaminophen from all sources does not exceed 3 g (3000 mg) per day. You may get constipated while on this medication. Take a stool softener such as Colace twice a day while you are on it. Also add an [id number] laxative such as senna or MiraLAX on any day that you do not have a bowel movement. If you received a narcotic pain medication or sedative while in the emergency department, do not drive for the next 24 hours.
[2017-11-21 16:56] VITALS: BP 118/79
== END 2017-11-21 17:27 | disposition home or self-care (01) ==
LOC: ED 13:38
DX: N83.202 Unspecified ovarian cyst, left side (principal)
CPT/HCPCS: 36415; 80053; 81003; 81025; 83690; 85025; 96372; 99283; J1170; 81001; 87086